=== PATIENT | male | born 1980 | race African-American/Black ===

== ENCOUNTER 2017-12-20 18:43 | Emergency (ER) | payer MEDICAID, OTHER ==
[~2017-12-20] VITALS: Ht 190.5 cm; Wt 79.5 kg
[~2017-12-20 18:43] MED LIST: HYDR-565 PO; KETO10TA2 PO
[2017-12-20 19:03] VITALS: BP 129/86
== END 2017-12-20 20:11 | disposition home or self-care (01) ==
LOC: ER 18:43
DX: S71.131A Puncture wound without foreign body, right thigh, initial encounter (principal); F17.200 Nicotine dependence, unspecified, uncomplicated; F15.10 Other stimulant abuse, uncomplicated; W26.0XXA Contact with knife, initial encounter; Y93.89 Activity, other specified; Y92.89 Other specified places as the place of occurrence of the external cause; Y99.8 Other external cause status
CPT/HCPCS: 12001; 99283

== ENCOUNTER 2018-12-12 15:40 | Emergency (ER) | payer MEDICAID, OTHER ==
[~2018-12-12] VITALS: Ht 190.5 cm; Wt 81.8 kg
[~2018-12-12 15:40] MED LIST changes: +HYDR-4353 PO; -HYDR-565 PO
[2018-12-12 16:10] LABS: BASOPHILS # (AUTO) 0.1 X10'3 (0-0.2); BASOPHILS % (AUTO) 0.5 % (0-1); EOSINOPHILS % (AUTO) 0.2 % (0-6); HEMATOCRIT 43.4 % (42.0-52.0); HEMOGLOBIN 14.4 g/dl (14.0-17.9); LYMPHOCYTES # (AUTO) 1.3 X10'3 (1.1-4.8); LYMPHOCYTES % (AUTO) 8.2 % (21-51); MEAN CORPUSCULAR HEMOGLOBIN 28.3 PG (27.0-31.0); MEAN CORPUSCULAR HGB CONC 33.2 g/dL (33.0-36.5); MEAN CORPUSCULAR VOLUME 85.1 FL (78-98); MONOCYTES # (AUTO) 1.3 X10'3 (0-0.9); MONOCYTES % (AUTO) 8.1 % (2-12); NEUTROPHILS # (AUTO) 12.9 X10'3 (1.8-7.7); PLATELET COUNT 334 X10'3 (140-440); RED CELL DISTRIBUTION WIDTH 14.7 % (11.5-14.5); WHITE BLOOD COUNT 15.6 X10'3 (4.5-11.0)
[2018-12-12 16:23] LABS: ALANINE AMINOTRANSFERASE 26 U/L (12-78); ALBUMIN 3.7 G/DL (3.4-5.0); ALBUMIN/GLOBULIN RATIO 0.9 (1.1-1.5); ALKALINE PHOSPHATASE 82 IU/L (46-116); ANION GAP 11 (8-16); ASPARTATE AMINO TRANSFERASE 18 U/L (10-37); BILIRUBIN,TOTAL 0.5 MG/DL (0.1-1.0); BLOOD UREA NITROGEN 11 MG/DL (7-18); BUN/CREATININE RATIO 8.7 (5.4-32.0); CHLORIDE 97 MMOL/L (99-107); CREATININE 1.27 MG/DL (0.60-1.10); GLUCOSE 98 MG/DL (70-104); POTASSIUM 3.9 MMOL/L (3.5-5.1); SODIUM 134 MMOL/L (135-145); TOTAL CARBON DIOXIDE 26.1 MMOL/L (24-32); TOTAL PROTEIN 7.9 G/DL (6.4-8.2); eGFR 76 ML/MIN
[2018-12-12 16:29] LABS: PROTHROMBIN TIME 10.6 SECONDS (9.0-12.0)
[2018-12-12] MEDS ORDERED: tamsulosin 0.4mg capsule PO STA (16:31)
[2018-12-12 16:33] LABS: PLATELET ESTIMATE NORMAL; TOTAL CELLS COUNTED 100
[2018-12-12] MEDS ORDERED: normal saline 1000ML IV soln IVB ONE (16:35)
[2018-12-12] MEDS ORDERED: ketorolac trometh. 30mg/ml inj. IV ONE (16:35)
[2018-12-12] MEDS ORDERED: morphine 4 MG/ML inj SYRINge IV ONE (16:35)
[2018-12-12] MEDS ORDERED: ondansetron 4mg rapidly disintigrating tab PO ONE (16:35)
[2018-12-12 17:33] LABS: CLARITY,URINE CLEAR (Clear); COLOR,URINE YELLOW (Yellow); GLUCOSE, URINE NEGATIVE (Neg); KETONES,URINE 40 mg/dl (Neg); LEUKOCYTE ESTERASE ,URINE NEGATIVE (Neg); NITRITES, URINE NEGATIVE (Neg); OCCULT BLOOD,URINE LARGE (Neg); PROTEIN,URINE NEGATIVE (Neg)
[2018-12-12 17:34] LABS: UA COLLECTION TYPE CLN CATCH MIDSTREAM
[2018-12-12 17:40] LABS: RBC,URINE 50-100 /HPF (0-2); WBC,URINE 0-4 /HPF (0-4)
[2018-12-12 17:41] LABS: BACTERIA,URINE NONE SEEN /HPF (Neg); MUCUS STRANDS FEW /LPF (Neg); SQUAMOUS EPITHELIAL CELL,UR FEW /LPF (FEW)
[2018-12-12 17:56] VITALS: BP 100/56
== END 2018-12-12 17:58 | disposition home or self-care (01) ==
LOC: ER 15:40
DX: K59.00 Constipation, unspecified (principal); F15.90 Other stimulant use, unspecified, uncomplicated; Z79.899 Other long term (current) drug therapy
CPT/HCPCS: 36415; 74176; 80053; 81001; 85025; 85610; 96374; 96375; 99284; J1885; J2270; J7030

== ENCOUNTER 2020-09-30 04:52 | Emergency (ER) | payer MEDICAID ==
[~2020-09-30] VITALS: Ht 190.5 cm; Wt 77.3 kg
[2020-09-30 04:57] VITALS: BP 140/96
[2020-09-30] MEDS ORDERED: penicillin V potassium 500mg tablet PO ONE (05:00)
[2020-09-30] MEDS ORDERED: PENI500T2 PO ×2 (05:02→05:05)
== END 2020-09-30 05:12 | disposition home or self-care (01) ==
LOC: ER 04:52
DX: K04.7 Periapical abscess without sinus (principal); K02.9 Dental caries, unspecified; F17.200 Nicotine dependence, unspecified, uncomplicated; Z87.442 Personal history of urinary calculi; Z79.2 Long term (current) use of antibiotics; Z79.899 Other long term (current) drug therapy
CPT/HCPCS: 99283